=== PATIENT | male | born 1960 | race Caucasian/White ===

== ENCOUNTER 2018-12-20 06:01 | Day surgery (SDC) | payer BC ==
[2018-12-20] MEDS ORDERED: Midazolam 1 MG/ML 2 ML SDV ONE (06:38)
[2018-12-20] MEDS ORDERED: Propofol 200 MG/20 ML SDV ONE ×2 (06:38→07:53)
[2018-12-20] MEDS ORDERED: fentaNYL 100 MCG/2 ML SDV ONE (06:38)
[2018-12-20] MEDS ORDERED: Lactated Ringers 1,000 ML IV SCH (07:00)
--- NOTE | 2018-12-20 15:34 | OR ---
DATE OF PROCEDURE: 12/20/2018 PREOPERATIVE DIAGNOSIS: Colon cancer screening. POSTOPERATIVE DIAGNOSES: Diverticulosis, three small colon polyps. PROCEDURE PERFORMED: Colonoscopy to the cecum with biopsy resection of three small colon polyps. SURGEON: Jason To MD ANESTHESIA: IV anesthesia with monitored anesthesia care. INDICATION: This 58-year-old white male is referred for a colonoscopy for colon cancer screening. He has never had a colonoscopic exam. I counseled him for the procedure, including risks and alternatives, and he gave his informed consent to proceed. DESCRIPTION OF PROCEDURE: The patient was placed in the left lateral decubitus position. IV anesthesia was administered by the Anesthesia Service. Time-out was held. A rectal exam was performed, which was unremarkable. The flexible video Olympus colonoscope was introduced through his anus, up his rectum, out his colon all the way to the cecum. En route, we saw very few scattered diverticula. There was no bleeding or inflammation associated with them. Once the cecum was reached, the scope was slowly withdrawn examining the mucosa throughout. In the distal transverse colon, we saw a small polyp, which was removed with the biopsy forceps. The scope was brought back further with no additional lesions noted until the rectum was reach. Here, at about 15 cm and another at about 8 cm, we saw small polyps. These were each removed with the biopsy forceps and sent separately to the laboratory. The scope was retroflexed in the rectum with the distal rectum appearing unremarkable. The scope was straightened and removed. He tolerated the procedure well. Jason To MD /[id number]
== END 2018-12-20 09:15 | disposition home or self-care (01) ==
LOC: JP.SDS 06:01
PROVIDERS: ATTEND Surgery
DX: Z12.11 Encounter for screening for malignant neoplasm of colon (principal); D12.3 Benign neoplasm of transverse colon; D12.8 Benign neoplasm of rectum; K63.5 Polyp of colon; K57.30 Diverticulosis of large intestine without perforation or abscess without bleeding; I10 Essential (primary) hypertension; E11.65 Type 2 diabetes mellitus with hyperglycemia; E78.5 Hyperlipidemia, unspecified; E66.9 Obesity, unspecified; Z68.42 Body mass index [BMI] 45.0-49.9, adult
CPT/HCPCS: 45380; J2250; J2704; J3010; J7120

== ENCOUNTER 2019-02-12 07:39 | Day surgery (SDC) | payer BC ==
[~2019-02-12 07:39] MED LIST: Bupivacaine 0.5% 30 ML SDV ONE; Dexamethasone 4 MG/ML SDV ONE; Glycopyrrolate 0.2 MG/ML 5 ML MDV ONE; Neostigmine Methylsulfate 1 MG/ML 5 ML Syringe ONE; Ondansetron 4 MG/2 ML SDV ONE; Propofol 200 MG/20 ML SDV ONE; Rocuronium 50 MG/5 ML Vial ONE; Succinylcholine 200 MG/10 ML MDV ONE; fentaNYL 250 MCG/5 ML SDV ONE
[2019-02-12] MEDS ORDERED: Lactated Ringers 1,000 ML IV SCH (08:45)
[2019-02-12] MEDS ORDERED: Nozin Nasal Sanitizer NASBOTH ONE (09:00)
[2019-02-12] MEDS ORDERED: ceFAZolin 2 GM in Premix Bag 1 BAG IV ONE (09:30)
[2019-02-12] MEDS ORDERED: ceFAZolin 2 GM in Sodium Chloride 0.9% 50 ML IV ONE (09:30)
[2019-02-12] MEDS ORDERED: Acetaminophen/oxyCODONE 325-5 MG Tab PO PRN (11:23)
--- NOTE | 2019-02-14 16:31 | OR ---
DATE OF PROCEDURE: 02/12/2019 SURGEON: Kenneth Chacon MD PREOPERATIVE DIAGNOSIS: Degenerative meniscus tear, right knee, possible articular cartilage defect, displaced. POSTOPERATIVE DIAGNOSES: 1. Degenerative meniscus tear, right knee, medial and lateral meniscus. 2. Chondromalacia of patellofemoral joint, grade 4. 3. 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 PROCEDURES: Arthroscopy right knee with partial medial meniscectomy with debridement, partial lateral meniscectomy with debridement, chondroplasty of patellofemoral joint. ANESTHESIA: General. INDICATIONS: Doroteo is a 58-year-old gentleman, who has had right knee pain off and on for the past few years, typically more aching pain with intermittent sharper pain, but he has been able to maintain his work. He has had recent onset of acute pain in the right knee with inability to weightbear, fully extend the knee, or to flex beyond 90 to 95 degrees. X- rays reveal only very mild joint space narrowing. He is therefore taken to the operating room for arthroscopy for a presumed degenerative meniscus tear locked within the joint. Risks, benefits, potential complications of the procedure were discussed. PROCEDURE IN DETAIL: After adequate anesthesia was obtained, the patient was placed supine with a tourniquet about the right upper thigh. Right leg was prepped and draped in a sterile fashion. Leg was exsanguinated and tourniquet inflated to 300 mmHg pressure. Standard anterior, inferior, medial, and lateral portals were established. Scope was introduced and the patellofemoral joint was inspected. This revealed mild degenerative changes on the patella with two areas of full-thickness articular cartilage loss in the trochlea. These were both troughs measuring approximately 12 mm in length and 3 to 4 mm in width. Loose articular flaps were present on the edges, particularly in the medial and lateral edges of the troughs. Scope was then moved into the medial compartment and this showed intact articular cartilage with some thinning, but no significant defects. Degenerative meniscus tear was present in the posterior horn. This was debrided back to a stable margin with a combination of punch baskets and shaver. All loose fragments were removed. Intercondylar notch revealed evidence of an old partial ACL tear, primarily the anterior bundle. A portion of this was debrided and the remainder of the ACL and PCL were inspected and were normal. Moving into the lateral compartment, significant degenerative changes were noted with areas of complete articular cartilage loss and bone eburnation on both the femoral condyle and tibial plateau. Lateral meniscus showed degenerative tearing in the posterior horn into the midbody. Punch basket and shaver were used to debride the loose portions of the meniscus and shaven back to a stable margin. All loose fragments were removed. Attention was returned to the patellofemoral joint where shaver was used to perform chondroplasty, removing the loose articular flaps from the trough, but doing minimal debridement of remaining articular cartilage. Knee was drained. Scope was withdrawn. Port sites were closed in a standard fashion, infiltrated with Marcaine. A sterile dressing was applied. The patient tolerated the procedure very well. There were no complications. He was taken from the operating room in stable condition. Kenneth Chacon MD /[id number]
== END 2019-02-12 12:22 | disposition home or self-care (01) ==
LOC: JP.SDS 07:39
PROVIDERS: ATTEND Specialist
DX: S83.281A Other tear of lateral meniscus, current injury, right knee, initial encounter (principal); S83.241A Other tear of medial meniscus, current injury, right knee, initial encounter; M22.41 Chondromalacia patellae, right knee; M17.11 Unilateral primary osteoarthritis, right knee; E78.00 Pure hypercholesterolemia, unspecified; I10 Essential (primary) hypertension; M19.90 Unspecified osteoarthritis, unspecified site; E11.9 Type 2 diabetes mellitus without complications; Z79.899 Other long term (current) drug therapy; Z87.891 Personal history of nicotine dependence
CPT/HCPCS: A9270-GY; J0330; J0690; J1100; J2405; J2704; J2710; J3010; J3490; J7050; J7120

== ENCOUNTER 2019-03-19 09:00 | Inpatient (IN) | payer BC ==
[~2019-03-19 09:00] MED LIST changes: -Bupivacaine 0.5% 30 ML SDV ONE; -Dexamethasone 4 MG/ML SDV ONE; -Glycopyrrolate 0.2 MG/ML 5 ML MDV ONE; -Neostigmine Methylsulfate 1 MG/ML 5 ML Syringe ONE; -Ondansetron 4 MG/2 ML SDV ONE; +Povidone-Iodine 10% Soln 118.25 ML Bottle ONE; -Propofol 200 MG/20 ML SDV ONE; -Rocuronium 50 MG/5 ML Vial ONE; -Succinylcholine 200 MG/10 ML MDV ONE; -fentaNYL 250 MCG/5 ML SDV ONE
[2019-03-19] MEDS ORDERED: Lactated Ringers 1,000 ML IV SCH (10:00)
[2019-03-19] MEDS ORDERED: Nozin Nasal Sanitizer NASBOTH ONE (10:00)
[2019-03-19] MEDS ORDERED: Tranexamic Acid 1,000 MG in Sodium Chloride 0.9% 50 ML IV ONE ×2 (10:30→17:30)
[2019-03-19] MEDS ORDERED: ceFAZolin 2 GM in Sodium Chloride 0.9% 50 ML IV ONE (11:00)
[2019-03-19] MEDS ORDERED: ceFAZolin 2 GM in Premix Bag 1 BAG IV ONE (11:00)
[2019-03-19] MEDS ORDERED: fentaNYL 100 MCG/2 ML SDV ONE ×4 (11:54→16:41)
[2019-03-19] MEDS ORDERED: Midazolam 1 MG/ML 2 ML SDV ONE ×5 (11:54→15:38)
[2019-03-19] MEDS ORDERED: Propofol 200 MG/20 ML SDV ONE ×7 (11:54→16:25)
[2019-03-19] MEDS ORDERED: Tranexamic Acid 1,000 MG in Sodium Chloride 0.9% 50 ML IV PRN (12:30)
[2019-03-19] MEDS ORDERED: Lactated Ringers 1,000 ML ONE (14:27)
[2019-03-19] MEDS ORDERED: Acetaminophen 325 MG Tab PO PRN (17:25)
[2019-03-19] MEDS ORDERED: Magnesium Hydroxide 400 MG/5 ML Susp 30 ML Cup PO PRN (17:25)
[2019-03-19] MEDS ORDERED: Sodium Chloride 0.9% 1,000 ML IV SCH (17:30)
[2019-03-19] MEDS: Ketorolac 30 MG/ML SDV IVPUSH SCH (18:26)
[2019-03-19] MEDS: Acetaminophen/oxyCODONE 325-5 MG Tab PO PRN ×2 (18:26→22:37)
[2019-03-19] MEDS: Morphine 4 MG/ML Syringe IVPUSH PRN ×2 (19:34→23:10)
[2019-03-19] MEDS: ceFAZolin 1 GM in Sodium Chloride 0.9% 50 ML IV SCH (21:32)
[2019-03-19] MEDS: Docusate Sodium 100 MG Cap PO SCH (21:33)
[2019-03-20] MEDS: Ketorolac 30 MG/ML SDV IVPUSH SCH ×3 (02:37→18:12)
[2019-03-20] MEDS: ceFAZolin 1 GM in Sodium Chloride 0.9% 50 ML IV SCH ×3 (05:12→21:38)
[2019-03-20] MEDS ORDERED: Enoxaparin 30 MG/0.3 ML Syringe SUBCUT SCH (09:00)
[2019-03-20] MEDS: Losartan 50 MG Tab PO SCH (09:47)
[2019-03-20] MEDS: Rosuvastatin 10 MG Tab PO SCH (09:50)
[2019-03-20] MEDS: amLODIPine 5 MG Tab PO SCH (09:50)
[2019-03-20] MEDS: Hydrochlorothiazide 25 MG Tab PO SCH (09:50)
[2019-03-20] MEDS: Docusate Sodium 100 MG Cap PO SCH ×2 (09:51→20:12)
[2019-03-20] MEDS: Enoxaparin 30 MG/0.3 ML Syringe SUBCUT SCH (09:51)
[2019-03-20] MEDS: Nozin Nasal Sanitizer NASBOTH SCH ×2 (09:51→20:12)
[2019-03-20] MEDS: Acetaminophen/oxyCODONE 325-5 MG Tab PO PRN ×2 (12:15→16:29)
--- NOTE | 2019-03-20 16:31 | CRLCR ---
INDICATION: Postop follow up. IMPRESSION: Two views right knee. Total knee arthroplasty with patellar resurfacing. Immediate postoperative appearance with soft tissue and intra-articular air. Anatomic alignment. No fracture. Dictated by Jayden Friedman MD @ Mar 20 2019 4:29PM Signed by Dr. Jayden Friedman @ Mar 20 2019 4:29PM
[2019-03-21] MEDS: Acetaminophen/oxyCODONE 325-5 MG Tab PO PRN ×4 (01:36→23:44)
[2019-03-21] MEDS: Ketorolac 30 MG/ML SDV IVPUSH SCH ×2 (01:45→09:14)
[2019-03-21] MEDS: Rosuvastatin 10 MG Tab PO SCH (08:49)
[2019-03-21] MEDS: Hydrochlorothiazide 25 MG Tab PO SCH (08:49)
[2019-03-21] MEDS: amLODIPine 5 MG Tab PO SCH (08:50)
[2019-03-21] MEDS: Losartan 50 MG Tab PO SCH (08:54)
[2019-03-21] MEDS: Docusate Sodium 100 MG Cap PO SCH ×2 (08:55→21:48)
[2019-03-21] MEDS: Enoxaparin 30 MG/0.3 ML Syringe SUBCUT SCH (08:56)
[2019-03-21] MEDS: Nozin Nasal Sanitizer NASBOTH SCH ×2 (08:57→21:48)
--- NOTE | 2019-03-21 09:56 | CRLCR ---
Indication: Status post TKA. Technique: Examination consists two views the right knee is AP supine and cross-table lateral views Comparison: There are no prior studies for comparison Findings: There has been a right knee arthroplasty. The alignment of the prosthetic components appears normal. There is no fracture and there is no abnormal lucency about implants. Gas within soft tissues is noted consistent with the immediate postoperative period. There is a small joint effusion Impression: Expected appearance of the right knee immediately status post arthroplasty. No unexpected findings. Dictated by Rich Farah MD @ Mar 20 2019 4:28PM Signed by Dr. Rich Farah @ Mar 20 2019 4:30PM
--- NOTE | 2019-03-21 12:44 | PCM.SURGPN ---
- General Info Date of Service: 03/20/19 Date of Surgery/Procedure: 03/19/19 POD#: 1 Functional Status: Reports: Pain Controlled, Tolerating Diet, Ambulating - Review of Systems General: Reports: No Symptoms HEENT: Reports: No Symptoms Pulmonary: Reports: No Symptoms Cardiovascular: Reports: No Symptoms Gastrointestinal: Reports: No Symptoms Genitourinary: Reports: No Symptoms Musculoskeletal: Reports: Leg Pain Skin: Reports: No Symptoms Neurological: Reports: No Symptoms Psychiatric: Reports: No Symptoms - Patient Data Vitals - Most Recent: Last Vital Signs Temp 37.0 C 03/21/19 10:27 Pulse 80 03/21/19 10:27 Resp 14 03/21/19 10:27 BP 110/62 03/21/19 10:27 Pulse Ox 96 03/21/19 10:27 Weight - Most Recent: 113.398 kg I&O - Last 24 Hours: Intake & Output 03/20/19 03/21/19 03/21/19 22:59 06:59 14:59 Intake Total 50 300 360 Output Total 200 Balance -150 300 360 Med Orders - Current: Current Medications Acetaminophen (Tylenol) 650 mg PO Q4H PRN PRN Reason: Pain/Fever Amlodipine Besylate (Norvasc) 5 mg PO DAILY [facility] Last Admin: 03/21/19 08:50 Dose: 5 mg Bandage/Support Products ( Nasal Bus Analyst) 1 applic NASBOTH BID [facility] Last Admin: 03/21/19 08:57 Dose: 1 applic Docusate Sodium (Colace) 100 mg PO BID [facility] Last Admin: 03/21/19 08:55 Dose: 100 mg Enoxaparin Sodium (Lovenox) 30 mg SUBCUT DAILY [facility] Last Admin: 03/21/19 08:56 Dose: 30 mg Hydrochlorothiazide (Hydrochlorothiazide) 25 mg PO DAILY [facility] Last Admin: 03/21/19 08:49 Dose: 25 mg Sodium Chloride (Normal Saline) 1,000 mls @ 125 mls/hr IV ASDIRECTED [facility] Last Admin: 03/20/19 09:56 Dose: 125 mls/hr Ketorolac Tromethamine (Toradol) 30 mg IVPUSH Q8H [facility] Stop: 03/23/19 18:01 Last Admin: 03/21/19 09:14 Dose: 30 mg Losartan Potassium (Cozaar) 100 mg PO DAILY [facility] Last Admin: 03/21/19 08:54 Dose: 100 mg Magnesium Hydroxide (Milk Of Magnesia) 30 ml PO BID PRN PRN Reason: Constipation Morphine Sulfate (Morphine) 4 mg IVPUSH Q2H PRN PRN Reason: Breakthrough Pain Last Admin: 03/19/19 23:10 Dose: 4 mg Oxycodone/Acetaminophen (Percocet 325-5 Mg) 2 tab PO Q4H PRN PRN Reason: Pain Last Admin: 03/21/19 08:25 Dose: 1 tab Rosuvastatin Calcium (Crestor) 5 mg PO DAILY [facility] Last Admin: 03/21/19 08:49 Dose: 5 mg Discontinued Medications Bandage/Support Products ( Nasal Bus Analyst) 1 applic NASBOTH ONETIME ONE Stop: 03/19/19 10:01 Last Admin: 03/19/19 10:08 Dose: 1 applic Enoxaparin Sodium (Lovenox) 30 mg SUBCUT DAILY [facility] Fentanyl (Sublimaze) Confirm Administered Dose 100 mcg .ROUTE .STK-MED ONE Stop: 03/19/19 11:55 Fentanyl (Sublimaze) Confirm Administered Dose 100 mcg .ROUTE .STK-MED ONE Stop: 03/19/19 15:39 Fentanyl (Sublimaze) Confirm Administered Dose 100 mcg .ROUTE .STK-MED ONE Stop: 03/19/19 16:16 Fentanyl (Sublimaze) Confirm Administered Dose 100 mcg .ROUTE .STK-MED ONE Stop: 03/19/19 16:42 Lactated Ringer's (Ringers, Lactated) 1,000 mls @ 75 mls/hr IV ASDIRECTED [facility] Last Admin: 03/19/19 10:45 Dose: 75 mls/hr Cefazolin Sodium 2 gm/ Sodium (Chloride) 50 mls @ 100 mls/hr IV ONETIME ONE Stop: 03/19/19 11:29 Last Admin: 03/19/19 13:41 Dose: 100 mls/hr Tranexamic Acid 1,000 mg/ (Sodium Chloride) 60 mls @ 240 mls/hr IV ONETIME ONE Stop: 03/19/19 10:44 Last Admin: 03/19/19 14:24 Dose: 240 mls/hr Lactated Ringer's (Ringers, Lactated) Confirm Administered Dose 1,000 mls @ as directed .ROUTE .STK-MED ONE Stop: 03/19/19 14:28 Tranexamic Acid 1,000 mg/ (Sodium Chloride) 60 mls @ 240 mls/hr IV ONETIME ONE Stop: 03/19/19 17:44 Last Admin: 03/19/19 17:00 Dose: 240 mls/hr Cefazolin Sodium 1 gm/ Sodium (Chloride) 50 mls @ 200 mls/hr IV Q8H [facility] Stop: 03/20/19 22:14 Last Admin: 03/20/19 21:38 Dose: 200 mls/hr Midazolam HCl (Versed 1 Mg/Ml) Confirm Administered Dose 2 mg .ROUTE .STK-MED ONE Stop: 03/19/19 11:55 Midazolam HCl (Versed 1 Mg/Ml) Confirm Administered Dose 2 mg .ROUTE .STK-MED ONE Stop: 03/19/19 14:28 Midazolam HCl (Versed 1 Mg/Ml) Confirm Administered Dose 2 mg .ROUTE .STK-MED ONE Stop: 03/19/19 14:37 Midazolam HCl (Versed 1 Mg/Ml) Confirm Administered Dose 2 mg .ROUTE .STK-MED ONE Stop: 03/19/19 15:20 Midazolam HCl (Versed 1 Mg/Ml) Confirm Administered Dose 2 mg .ROUTE .STK-MED ONE Stop: 03/19/19 15:39 Povidone Iodine (Betadine 10% Soln) Confirm Administered Dose 1 ml .ROUTE .STK- MED ONE Stop: 03/19/19 08:28 Last Admin: 03/19/19 14:31 Dose: 60 ml Propofol (Diprivan 20 Ml) Confirm Administered Dose 200 mg .ROUTE .STK-MED ONE Stop: 03/19/19 11:55 Propofol (Diprivan 20 Ml) Confirm Administered Dose 200 mg .ROUTE .STK-MED ONE Stop: 03/19/19 14:22 Propofol (Diprivan 20 Ml) Confirm Administered Dose 200 mg .ROUTE .STK-MED ONE Stop: 03/19/19 14:58 Propofol (Diprivan 20 Ml) Confirm Administered Dose 200 mg .ROUTE .STK-MED ONE Stop: 03/19/19 15:16 Propofol (Diprivan 20 Ml) Confirm Administered Dose 200 mg .ROUTE .STK-MED ONE Stop: 03/19/19 15:31 Propofol (Diprivan 20 Ml) Confirm Administered Dose 200 mg .ROUTE .STK-MED ONE Stop: 03/19/19 16:04 Propofol (Diprivan 20 Ml) Confirm Administered Dose 200 mg .ROUTE .STK-MED ONE Stop: 03/19/19 16:26 - Exam Wound/Incisions: Dressing Dry and Intact General: Alert, Oriented HEENT: Pupils Equal Neck: Supple Lungs: Clear to Auscultation, Normal Respiratory Effort Cardiovascular: Regular Rate, Regular Rhythm GI/Abdominal Exam: Normal Bowel Sounds, Soft, Non-Tender, No Distention Extremities: Joint Swelling, Limited Range of Motion Skin: Warm, Dry Neurological: No New Focal Deficit Psy/Mental Status: Alert, Normal Affect, Normal Mood - Problem List & Annotations (1) Status post total bilateral knee replacement SNOMED Code(s): 3289729782615, 6143622644681 Code(s): Z96.653 - PRESENCE OF ARTIFICIAL KNEE JOINT, BILATERAL Status: Acute Current Visit: Yes - Problem List Review Problem List Initiated/Reviewed/Updated: Yes - My Orders Last 24 Hours: Active Orders 24 hr Category Date Time Status Convert IV to Saline Lock [OM.PC] Routine Oth 03/20/19 12:48 Ordered Medication Orders Acetaminophen (Tylenol) 650 mg PO Q4H PRN PRN Reason: Pain/Fever Amlodipine Besylate (Norvasc) 5 mg PO DAILY [facility] Last Admin: 03/21/19 08:50 Dose: 5 mg Admin: 03/20/19 09:50 Dose: 5 mg Bandage/Support Products ( Nasal Bus Analyst) 1 applic NASBOTH BID [facility] Last Admin: 03/21/19 08:57 Dose: 1 applic Admin: 03/20/19 20:12 Dose: 1 applic Admin: 03/20/19 09:51 Dose: 1 applic Docusate Sodium (Colace) 100 mg PO BID [facility] Last Admin: 03/21/19 08:55 Dose: 100 mg Admin: 03/20/19 20:12 Dose: 100 mg Admin: 03/20/19 09:51 Dose: 100 mg Admin: 03/19/19 21:33 Dose: 100 mg Enoxaparin Sodium (Lovenox) 30 mg SUBCUT DAILY [facility] Last Admin: 03/21/19 08:56 Dose: 30 mg Admin: 03/20/19 09:51 Dose: 30 mg Hydrochlorothiazide (Hydrochlorothiazide) 25 mg PO DAILY [facility] Last Admin: 03/21/19 08:49 Dose: 25 mg Admin: 03/20/19 09:50 Dose: 25 mg Sodium Chloride (Normal Saline) 1,000 mls @ 125 mls/hr IV ASDIRECTED [facility] Last Admin: 03/20/19 09:56 Dose: 125 mls/hr Ketorolac Tromethamine (Toradol) 30 mg IVPUSH Q8H [facility] Stop: 03/23/19 18:01 Last Admin: 03/21/19 09:14 Dose: 30 mg Admin: 03/21/19 01:45 Dose: 30 mg Admin: 03/20/19 18:12 Dose: 30 mg Admin: 03/20/19 09:52 Dose: 30 mg Admin: 03/20/19 02:37 Dose: 30 mg Admin: 03/19/19 18:26 Dose: 30 mg Losartan Potassium (Cozaar) 100 mg PO DAILY [facility] Last Admin: 03/21/19 08:54 Dose: 100 mg Admin: 03/20/19 09:47 Dose: 100 mg Magnesium Hydroxide (Milk Of Magnesia) 30 ml PO BID PRN PRN Reason: Constipation Morphine Sulfate (Morphine) 4 mg IVPUSH Q2H PRN PRN Reason: Breakthrough Pain Last Admin: 03/19/19 23:10 Dose: 4 mg Admin: 03/19/19 19:34 Dose: 4 mg Oxycodone/Acetaminophen (Percocet 325-5 Mg) 2 tab PO Q4H PRN PRN Reason: Pain Last Admin: 03/21/19 08:25 Dose: 1 tab Admin: 03/21/19 01:36 Dose: 1 tab Admin: 03/20/19 16:29 Dose: 2 tab Admin: 03/20/19 12:15 Dose: 2 tab Admin: 03/19/19 22:37 Dose: 2 tab Admin: 03/19/19 18:26 Dose: 2 tab Rosuvastatin Calcium (Crestor) 5 mg PO DAILY [facility] Last Admin: 03/21/19 08:49 Dose: 5 mg Admin: 03/20/19 09:50 Dose: 5 mg - Assessment Assessment (Free Text/Narrative):: Tolerated surgery and is doing very well, pain controlled, has been up in room and just into hallway - Plan Plan (Free Text/Narrative):: Continue PT/OT, D/C Alvarenga, saline lock IV, change dressing tomorrow
--- NOTE | 2019-03-21 12:49 | PCM.SURGPN ---
- General Info Date of Service: 03/21/19 Date of Surgery/Procedure: 03/19/19 POD#: 2 Functional Status: Reports: Pain Controlled, Tolerating Diet, Ambulating, Urinating - Review of Systems General: Reports: No Symptoms HEENT: Reports: No Symptoms Pulmonary: Reports: No Symptoms Cardiovascular: Reports: No Symptoms Gastrointestinal: Reports: No Symptoms Genitourinary: Reports: No Symptoms Musculoskeletal: Reports: No Symptoms Skin: Reports: No Symptoms Neurological: Reports: No Symptoms Psychiatric: Reports: No Symptoms - Patient Data Vitals - Most Recent: Last Vital Signs Temp 37.0 C 03/21/19 10:27 Pulse 80 03/21/19 10:27 Resp 14 03/21/19 10:27 BP 110/62 03/21/19 10:27 Pulse Ox 96 03/21/19 10:27 Weight - Most Recent: 113.398 kg I&O - Last 24 Hours: Intake & Output 03/20/19 03/21/19 03/21/19 22:59 06:59 14:59 Intake Total 50 300 600 Output Total 200 Balance -150 300 600 Med Orders - Current: Current Medications Acetaminophen (Tylenol) 650 mg PO Q4H PRN PRN Reason: Pain/Fever Amlodipine Besylate (Norvasc) 5 mg PO DAILY [facility] Last Admin: 03/21/19 08:50 Dose: 5 mg Bandage/Support Products ( Nasal Vice President Of Product Marketing) 1 applic NASBOTH BID [facility] Last Admin: 03/21/19 08:57 Dose: 1 applic Docusate Sodium (Colace) 100 mg PO BID [facility] Last Admin: 03/21/19 08:55 Dose: 100 mg Enoxaparin Sodium (Lovenox) 30 mg SUBCUT DAILY [facility] Last Admin: 03/21/19 08:56 Dose: 30 mg Hydrochlorothiazide (Hydrochlorothiazide) 25 mg PO DAILY [facility] Last Admin: 03/21/19 08:49 Dose: 25 mg Sodium Chloride (Normal Saline) 1,000 mls @ 125 mls/hr IV ASDIRECTED [facility] Last Admin: 03/20/19 09:56 Dose: 125 mls/hr Ketorolac Tromethamine (Toradol) 30 mg IVPUSH Q8H [facility] Stop: 03/23/19 18:01 Last Admin: 03/21/19 09:14 Dose: 30 mg Losartan Potassium (Cozaar) 100 mg PO DAILY [facility] Last Admin: 03/21/19 08:54 Dose: 100 mg Magnesium Hydroxide (Milk Of Magnesia) 30 ml PO BID PRN PRN Reason: Constipation Morphine Sulfate (Morphine) 4 mg IVPUSH Q2H PRN PRN Reason: Breakthrough Pain Last Admin: 03/19/19 23:10 Dose: 4 mg Oxycodone/Acetaminophen (Percocet 325-5 Mg) 2 tab PO Q4H PRN PRN Reason: Pain Last Admin: 03/21/19 08:25 Dose: 1 tab Rosuvastatin Calcium (Crestor) 5 mg PO DAILY [facility] Last Admin: 03/21/19 08:49 Dose: 5 mg Discontinued Medications Bandage/Support Products ( Nasal Vice President Of Product Marketing) 1 applic NASBOTH ONETIME ONE Stop: 03/19/19 10:01 Last Admin: 03/19/19 10:08 Dose: 1 applic Enoxaparin Sodium (Lovenox) 30 mg SUBCUT DAILY [facility] Fentanyl (Sublimaze) Confirm Administered Dose 100 mcg .ROUTE .STK-MED ONE Stop: 03/19/19 11:55 Fentanyl (Sublimaze) Confirm Administered Dose 100 mcg .ROUTE .STK-MED ONE Stop: 03/19/19 15:39 Fentanyl (Sublimaze) Confirm Administered Dose 100 mcg .ROUTE .STK-MED ONE Stop: 03/19/19 16:16 Fentanyl (Sublimaze) Confirm Administered Dose 100 mcg .ROUTE .STK-MED ONE Stop: 03/19/19 16:42 Lactated Ringer's (Ringers, Lactated) 1,000 mls @ 75 mls/hr IV ASDIRECTED [facility] Last Admin: 03/19/19 10:45 Dose: 75 mls/hr Cefazolin Sodium 2 gm/ Sodium (Chloride) 50 mls @ 100 mls/hr IV ONETIME ONE Stop: 03/19/19 11:29 Last Admin: 03/19/19 13:41 Dose: 100 mls/hr Tranexamic Acid 1,000 mg/ (Sodium Chloride) 60 mls @ 240 mls/hr IV ONETIME ONE Stop: 03/19/19 10:44 Last Admin: 03/19/19 14:24 Dose: 240 mls/hr Lactated Ringer's (Ringers, Lactated) Confirm Administered Dose 1,000 mls @ as directed .ROUTE .STK-MED ONE Stop: 03/19/19 14:28 Tranexamic Acid 1,000 mg/ (Sodium Chloride) 60 mls @ 240 mls/hr IV ONETIME ONE Stop: 03/19/19 17:44 Last Admin: 03/19/19 17:00 Dose: 240 mls/hr Cefazolin Sodium 1 gm/ Sodium (Chloride) 50 mls @ 200 mls/hr IV Q8H [facility] Stop: 03/20/19 22:14 Last Admin: 03/20/19 21:38 Dose: 200 mls/hr Midazolam HCl (Versed 1 Mg/Ml) Confirm Administered Dose 2 mg .ROUTE .STK-MED ONE Stop: 03/19/19 11:55 Midazolam HCl (Versed 1 Mg/Ml) Confirm Administered Dose 2 mg .ROUTE .STK-MED ONE Stop: 03/19/19 14:28 Midazolam HCl (Versed 1 Mg/Ml) Confirm Administered Dose 2 mg .ROUTE .STK-MED ONE Stop: 03/19/19 14:37 Midazolam HCl (Versed 1 Mg/Ml) Confirm Administered Dose 2 mg .ROUTE .STK-MED ONE Stop: 03/19/19 15:20 Midazolam HCl (Versed 1 Mg/Ml) Confirm Administered Dose 2 mg .ROUTE .STK-MED ONE Stop: 03/19/19 15:39 Povidone Iodine (Betadine 10% Soln) Confirm Administered Dose 1 ml .ROUTE .STK- MED ONE Stop: 03/19/19 08:28 Last Admin: 03/19/19 14:31 Dose: 60 ml Propofol (Diprivan 20 Ml) Confirm Administered Dose 200 mg .ROUTE .STK-MED ONE Stop: 03/19/19 11:55 Propofol (Diprivan 20 Ml) Confirm Administered Dose 200 mg .ROUTE .STK-MED ONE Stop: 03/19/19 14:22 Propofol (Diprivan 20 Ml) Confirm Administered Dose 200 mg .ROUTE .STK-MED ONE Stop: 03/19/19 14:58 Propofol (Diprivan 20 Ml) Confirm Administered Dose 200 mg .ROUTE .STK-MED ONE Stop: 03/19/19 15:16 Propofol (Diprivan 20 Ml) Confirm Administered Dose 200 mg .ROUTE .STK-MED ONE Stop: 03/19/19 15:31 Propofol (Diprivan 20 Ml) Confirm Administered Dose 200 mg .ROUTE .STK-MED ONE Stop: 03/19/19 16:04 Propofol (Diprivan 20 Ml) Confirm Administered Dose 200 mg .ROUTE .STK-MED ONE Stop: 03/19/19 16:26 - Exam Wound/Incisions: Healing Well, No Drainage General: Alert, Oriented HEENT: Pupils Equal Neck: Supple Lungs: Clear to Auscultation, Normal Respiratory Effort Cardiovascular: Regular Rate, Regular Rhythm GI/Abdominal Exam: Normal Bowel Sounds, Soft, Non-Tender, No Distention Extremities: Joint Swelling, Limited Range of Motion, Other (mild swelling both legs) Skin: Warm, Dry Neurological: No New Focal Deficit Psy/Mental Status: Alert, Normal Affect, Normal Mood - Problem List & Annotations (1) Status post total bilateral knee replacement SNOMED Code(s): 9663337194709, 5926704999994 Code(s): Z96.653 - PRESENCE OF ARTIFICIAL KNEE JOINT, BILATERAL Status: Acute Current Visit: Yes - Problem List Review Problem List Initiated/Reviewed/Updated: Yes - My Orders Last 24 Hours: Active Orders 24 hr Category Date Time Status Convert IV to Saline Lock [OM.PC] Routine Oth 03/20/19 12:48 Ordered Medication Orders Acetaminophen (Tylenol) 650 mg PO Q4H PRN PRN Reason: Pain/Fever Amlodipine Besylate (Norvasc) 5 mg PO DAILY [facility] Last Admin: 03/21/19 08:50 Dose: 5 mg Admin: 03/20/19 09:50 Dose: 5 mg Bandage/Support Products ( Nasal Vice President Of Product Marketing) 1 applic NASBOTH BID [facility] Last Admin: 03/21/19 08:57 Dose: 1 applic Admin: 03/20/19 20:12 Dose: 1 applic Admin: 03/20/19 09:51 Dose: 1 applic Docusate Sodium (Colace) 100 mg PO BID [facility] Last Admin: 03/21/19 08:55 Dose: 100 mg Admin: 03/20/19 20:12 Dose: 100 mg Admin: 03/20/19 09:51 Dose: 100 mg Admin: 03/19/19 21:33 Dose: 100 mg Enoxaparin Sodium (Lovenox) 30 mg SUBCUT DAILY [facility] Last Admin: 03/21/19 08:56 Dose: 30 mg Admin: 03/20/19 09:51 Dose: 30 mg Hydrochlorothiazide (Hydrochlorothiazide) 25 mg PO DAILY [facility] Last Admin: 03/21/19 08:49 Dose: 25 mg Admin: 03/20/19 09:50 Dose: 25 mg Sodium Chloride (Normal Saline) 1,000 mls @ 125 mls/hr IV ASDIRECTED [facility] Last Admin: 03/20/19 09:56 Dose: 125 mls/hr Ketorolac Tromethamine (Toradol) 30 mg IVPUSH Q8H [facility] Stop: 03/23/19 18:01 Last Admin: 03/21/19 09:14 Dose: 30 mg Admin: 03/21/19 01:45 Dose: 30 mg Admin: 03/20/19 18:12 Dose: 30 mg Admin: 03/20/19 09:52 Dose: 30 mg Admin: 03/20/19 02:37 Dose: 30 mg Admin: 03/19/19 18:26 Dose: 30 mg Losartan Potassium (Cozaar) 100 mg PO DAILY [facility] Last Admin: 03/21/19 08:54 Dose: 100 mg Admin: 03/20/19 09:47 Dose: 100 mg Magnesium Hydroxide (Milk Of Magnesia) 30 ml PO BID PRN PRN Reason: Constipation Morphine Sulfate (Morphine) 4 mg IVPUSH Q2H PRN PRN Reason: Breakthrough Pain Last Admin: 03/19/19 23:10 Dose: 4 mg Admin: 03/19/19 19:34 Dose: 4 mg Oxycodone/Acetaminophen (Percocet 325-5 Mg) 2 tab PO Q4H PRN PRN Reason: Pain Last Admin: 03/21/19 08:25 Dose: 1 tab Admin: 03/21/19 01:36 Dose: 1 tab Admin: 03/20/19 16:29 Dose: 2 tab Admin: 03/20/19 12:15 Dose: 2 tab Admin: 03/19/19 22:37 Dose: 2 tab Admin: 03/19/19 18:26 Dose: 2 tab Rosuvastatin Calcium (Crestor) 5 mg PO DAILY [facility] Last Admin: 03/21/19 08:49 Dose: 5 mg Admin: 03/20/19 09:50 Dose: 5 mg - Assessment Assessment (Free Text/Narrative):: Continues to do well, still a little slow with transitions out of bed, has been up in hallway, urinating with Alvarenga out. - Plan Plan (Free Text/Narrative):: Continue PT/OT , will check back after PT this afternoon and determine needs for home, anticipate discharge tomorrow.
[2019-03-22] MEDS: Acetaminophen/oxyCODONE 325-5 MG Tab PO PRN ×2 (04:26→09:08)
[2019-03-22] MEDS: Docusate Sodium 100 MG Cap PO SCH (09:14)
[2019-03-22] MEDS: Nozin Nasal Sanitizer NASBOTH SCH (09:14)
[2019-03-22] MEDS: Rosuvastatin 10 MG Tab PO SCH (09:15)
[2019-03-22] MEDS: Hydrochlorothiazide 25 MG Tab PO SCH (09:16)
[2019-03-22] MEDS: Losartan 50 MG Tab PO SCH (09:16)
[2019-03-22] MEDS: amLODIPine 5 MG Tab PO SCH (09:16)
[2019-03-22] MEDS: Enoxaparin 30 MG/0.3 ML Syringe SUBCUT SCH (09:17)
--- NOTE | 2019-03-22 12:32 | PCM.DCSUM1 ---
Discharge Summary - Hospital Course HPI Initial Comments: 58 year old male with history of progressive pain both knee for the past few years. Left knee has been more chronic and right knee with rapid progression of pain over the past couple of months. Admitted for bilateral total knee arthroplasty. Diagnosis: Stroke: No Modified [place] Scale: No Symptoms at All Modified [place] Scale Score: 0 - Discharge Data Discharge Date: 03/22/19 Discharge Disposition: Home, Self-Care 01 Condition: Good - Referral to Home Health Primary Care Physician: Michael Messina MD - Discharge Diagnosis/Problem(s) (1) Status post total bilateral knee replacement SNOMED Code(s): 1244717683230, [id number] ICD Code: Z96.653 - PRESENCE OF ARTIFICIAL KNEE JOINT, BILATERAL Status: Acute Current Visit: Yes - Patient Summary/Data Operative Procedure(s) Performed: Bilateral total knee arthroplasty Consults: Consultations // 17:20 Consult to Case Management/Meteorology Instructor [CONS] Routine Comment: Physician Instructions: Service(s) to be Consulted: Case Management Reason for Consult: Plan for Discharge PT Evaluation and Treatment [CONS] Routine Please Evaluate and Treat. PT Reason for Consult: Post op Ortho Surgery Special Instructions: Ambulation and ROM This query below is only for informational purposes and is not editable. 02/ 17:25 OT Evaluation and Treatment [CONS] Routine Please Evaluate and Treat. OT Reason for Consult: ADL's This query below is only for informational purposes and is not editable. Hospital Course: Patient tolerated procedure very well. Was able to participate with PT and pain fairly well controlled with po meds by POD #2. Difficulty initially with transfers in and out bed but was making good progress by POD #3. Did have an isolated temp spike on POD #3, encouraged incentive spirometry, no persistent temp elevation. He was comfortable with ambulation and transfer and was able to be discharged to home with plans for outpatient PT. - Patient Instructions Diet: Usual Diet as Tolerated Activity: Apply Ice, As Tolerated, Full Weight Bearing Driving: Do Not Drive Showering/Bathing: May Shower Notify Provider of: Fever, Increased Pain, Swelling and Redness, Drainage, Nausea and/or Vomiting - Discharge Plan *PRESCRIPTION DRUG MONITORING PROGRAM REVIEWED*: No *COPY OF PRESCRIPTION DRUG MONITORING REPORT IN PATIENT MICHAEL: No Prescriptions/Med Rec: oxyCODONE HCl/Acetaminophen [Percocet 5-325 mg Tablet] 2 each PO Q6HR PRN #48 tablet PRN Reason: Pain Enoxaparin [Lovenox] 30 mg SUBCUT DAILY 24 Days #24 syringe Home Medications: Home Meds Losartan Potassium [Cozaar] 100 mg PO DAILY 12/15/18 [History] Rosuvastatin [Crestor] 5 mg PO DAILY 12/15/18 [History] amLODIPine [Norvasc] 5 mg PO DAILY 12/15/18 [History] hydroCHLOROthiazide [Hydrochlorothiazide] 25 mg PO DAILY 12/15/18 [History] Hydrocodone/Acetaminophen [Hargill 5-325 Tablet] 1 each PO Q6HR PRN #24 tablet [Rx] Cbd Capsule 1 tab PO DAILY 03/19/19 [History] Enoxaparin [Lovenox] 30 mg SUBCUT DAILY 24 Days #24 syringe 03/22/19 [Rx] oxyCODONE HCl/Acetaminophen [Percocet 5-325 mg Tablet] 2 each PO Q6HR PRN #48 tablet 03/22/19 [Rx] Other Amb Orders: PT Evaluation and Treatment [CONS] Time Frame: 5 Days, Location: None Selected Oxygen Therapy Mode: Room Air Patient Handouts: Total Knee Replacement, Care After, [id number], Preventing Constipation After Surgery, Enoxaparin injection Referrals: Kenneth Chacon MD [Physician] - 04/03/19 9:30 am (Please arrive 15 minutes early to register for your appointment. [place] at the ER desk.) Sarmad Shane, PT [Consulting Physician] - 03/26/19 9:00 am (Please arrive 30 minutes early to register for your PT appointment.) - Discharge Summary/Plan Comment DC Time >30 min.: Yes - Patient Data Vitals - Most Recent: Last Vital Signs Temp 36.7 C 03/22/19 10:44 Pulse 86 03/22/19 10:44 Resp 16 03/22/19 10:44 BP 103/62 03/22/19 10:44 Pulse Ox 90 L 03/22/19 10:44 Weight - Most Recent: 113.398 kg I&O - Last 24 hours: Intake & Output 03/21/19 03/22/19 03/22/19 22:59 06:59 14:59 Intake Total 840 600 240 Balance 840 600 240 Med Orders - Current: Current Medications Acetaminophen (Tylenol) 650 mg PO Q4H PRN PRN Reason: Pain/Fever Last Admin: 03/21/19 19:22 Dose: 325 mg Amlodipine Besylate (Norvasc) 5 mg PO DAILY [facility] Last Admin: 03/22/19 09:16 Dose: 5 mg Bandage/Support Products ( Nasal Client Director) 1 applic NASBOTH BID [facility] Last Admin: 03/22/19 09:14 Dose: 1 applic Docusate Sodium (Colace) 100 mg PO BID [facility] Last Admin: 03/22/19 09:14 Dose: 100 mg Enoxaparin Sodium (Lovenox) 30 mg SUBCUT DAILY [facility] Last Admin: 03/22/19 09:17 Dose: 30 mg Hydrochlorothiazide (Hydrochlorothiazide) 25 mg PO DAILY [facility] Last Admin: 03/22/19 09:16 Dose: 25 mg Losartan Potassium (Cozaar) 100 mg PO DAILY [facility] Last Admin: 03/22/19 09:16 Dose: 100 mg Magnesium Hydroxide (Milk Of Magnesia) 30 ml PO BID PRN PRN Reason: Constipation Oxycodone/Acetaminophen (Percocet 325-5 Mg) 2 tab PO Q4H PRN PRN Reason: Pain Last Admin: 03/22/19 09:08 Dose: 1 tab Rosuvastatin Calcium (Crestor) 5 mg PO DAILY [facility] Last Admin: 03/22/19 09:15 Dose: 5 mg Discontinued Medications Bandage/Support Products ( Nasal Client Director) 1 applic NASBOTH ONETIME ONE Stop: 03/19/19 10:01 Last Admin: 03/19/19 10:08 Dose: 1 applic Enoxaparin Sodium (Lovenox) 30 mg SUBCUT DAILY [facility] Fentanyl (Sublimaze) Confirm Administered Dose 100 mcg .ROUTE .STK-MED ONE Stop: 03/19/19 11:55 Fentanyl (Sublimaze) Confirm Administered Dose 100 mcg .ROUTE .STK-MED ONE Stop: 03/19/19 15:39 Fentanyl (Sublimaze) Confirm Administered Dose 100 mcg .ROUTE .STK-MED ONE Stop: 03/19/19 16:16 Fentanyl (Sublimaze) Confirm Administered Dose 100 mcg .ROUTE .STK-MED ONE Stop: 03/19/19 16:42 Lactated Ringer's (Ringers, Lactated) 1,000 mls @ 75 mls/hr IV ASDIRECTED [facility] Last Admin: 03/19/19 10:45 Dose: 75 mls/hr Cefazolin Sodium 2 gm/ Sodium (Chloride) 50 mls @ 100 mls/hr IV ONETIME ONE Stop: 03/19/19 11:29 Last Admin: 03/19/19 13:41 Dose: 100 mls/hr Tranexamic Acid 1,000 mg/ (Sodium Chloride) 60 mls @ 240 mls/hr IV ONETIME ONE Stop: 03/19/19 10:44 Last Admin: 03/19/19 14:24 Dose: 240 mls/hr Lactated Ringer's (Ringers, Lactated) Confirm Administered Dose 1,000 mls @ as directed .ROUTE .STK-MED ONE Stop: 03/19/19 14:28 Tranexamic Acid 1,000 mg/ (Sodium Chloride) 60 mls @ 240 mls/hr IV ONETIME ONE Stop: 03/19/19 17:44 Last Admin: 03/19/19 17:00 Dose: 240 mls/hr Cefazolin Sodium 1 gm/ Sodium (Chloride) 50 mls @ 200 mls/hr IV Q8H [facility] Stop: 03/20/19 22:14 Last Admin: 03/20/19 21:38 Dose: 200 mls/hr Sodium Chloride (Normal Saline) 1,000 mls @ 125 mls/hr IV ASDIRECTED [facility] Last Admin: 03/20/19 09:56 Dose: 125 mls/hr Ketorolac Tromethamine (Toradol) 30 mg IVPUSH Q8H [facility] Stop: 03/23/19 18:01 Last Admin: 03/21/19 09:14 Dose: 30 mg Midazolam HCl (Versed 1 Mg/Ml) Confirm Administered Dose 2 mg .ROUTE .STK-MED ONE Stop: 03/19/19 11:55 Midazolam HCl (Versed 1 Mg/Ml) Confirm Administered Dose 2 mg .ROUTE .STK-MED ONE Stop: 03/19/19 14:28 Midazolam HCl (Versed 1 Mg/Ml) Confirm Administered Dose 2 mg .ROUTE .STK-MED ONE Stop: 03/19/19 14:37 Midazolam HCl (Versed 1 Mg/Ml) Confirm Administered Dose 2 mg .ROUTE .STK-MED ONE Stop: 03/19/19 15:20 Midazolam HCl (Versed 1 Mg/Ml) Confirm Administered Dose 2 mg .ROUTE .STK-MED ONE Stop: 03/19/19 15:39 Morphine Sulfate (Morphine) 4 mg IVPUSH Q2H PRN PRN Reason: Breakthrough Pain Last Admin: 03/19/19 23:10 Dose: 4 mg Povidone Iodine (Betadine 10% Soln) Confirm Administered Dose 1 ml .ROUTE .STK- MED ONE Stop: 03/19/19 08:28 Last Admin: 03/19/19 14:31 Dose: 60 ml Propofol (Diprivan 20 Ml) Confirm Administered Dose 200 mg .ROUTE .STK-MED ONE Stop: 03/19/19 11:55 Propofol (Diprivan 20 Ml) Confirm Administered Dose 200 mg .ROUTE .STK-MED ONE Stop: 03/19/19 14:22 Propofol (Diprivan 20 Ml) Confirm Administered Dose 200 mg .ROUTE .STK-MED ONE Stop: 03/19/19 14:58 Propofol (Diprivan 20 Ml) Confirm Administered Dose 200 mg .ROUTE .STK-MED ONE Stop: 03/19/19 15:16 Propofol (Diprivan 20 Ml) Confirm Administered Dose 200 mg .ROUTE .STK-MED ONE Stop: 03/19/19 15:31 Propofol (Diprivan 20 Ml) Confirm Administered Dose 200 mg .ROUTE .STK-MED ONE Stop: 03/19/19 16:04 Propofol (Diprivan 20 Ml) Confirm Administered Dose 200 mg .ROUTE .STK-MED ONE Stop: 03/19/19 16:26
--- NOTE | 2019-03-23 17:42 | OR ---
DATE OF PROCEDURE: 03/19/2019 SURGEON: Kenneth Chacon MD PREOPERATIVE DIAGNOSIS: Osteoarthritis, bilateral knees. PROCEDURE PERFORMED: Bilateral total knee arthroplasties using Claudia Persona components with size 7 femur, E tibia, 32 mm patellar button, 12 mm poly on the right and 18 mm on the left. ANESTHESIA: Spinal with sedation. INDICATIONS: Doroteo is a 58-year-old gentleman with history of progressive pain in both knees over the past several years. Left one has been giving him problems for quite some time. Right one has been more symptomatic lately. X-rays revealed only mild collapse. However, he recently underwent arthroscopy and was found to have full-thickness articular cartilage loss on both femoral and tibial sides of the joint. He now presents for bilateral total knee arthroplasties. Risks, benefits, potential complications of the procedure were discussed with the patient and his . PROCEDURE IN DETAIL: After adequate anesthesia was obtained, the patient was placed supine with tourniquet about the right and left legs. Both legs were then prepped and draped in sterile fashion. The left leg was then covered with sterile drape. Right leg was exsanguinated and tourniquet inflated to 300 mmHg. Incision made anteriorly and carried down to subcutaneous tissues and a medial parapatellar arthrotomy was performed. Posterior patella was resected with an oscillating saw. Intramedullary canal of the femur was drilled and intramedullary guide was then placed and distal femur was then cut. The extramedullary tibial guide was aligned and secured. The tibial cut was then made with an oscillating saw. Remaining meniscus was excised. Attention was returned to the femur which was sized to a 7 component. The 7 cutting jig was secured to the distal femur and remaining femoral cuts were made. The femoral trial was placed and intramedullary notch cut was made for a posterior cruciate sacrificing component. The tibia was sized to an E and a 10 mm insert was initially trialed. Tibial rotation was determined and the baseplate was secured with the small pins. Metaphysis was drilled and tapped. The patella was sized to a 32 button. This was drilled and button was placed. This did track laterally and a lateral release was performed. The trials were removed. The knee was thoroughly irrigated with pulse lavage. Surfaces were dried and components were cemented in place. Excess cement was removed and the knee was held in full extension with a 10 mm insert trial as the cement cured. The knee was taken through range of motion. He was found to have some mild laxity and a 12 mm insert was then utilized, which provided good balance in flexion and extension. Trial was removed. The knee was irrigated. The polyethylene was snapped into position. The knee was irrigated once again with pulse lavage, followed by dilute Betadine solution, which was left in place for 2-1/2 minutes and then irrigated once again. The knee was then closed with #2 Ethibond in interrupted fashion in the capsule, 2-0 Vicryl and running 3-0 Monocryl. Steri-Strips were applied. Light compressive dressing was placed and the knee was covered with a sterile drape. Attention was turned to the left knee, which was exsanguinated. Prep stick was used to re- prep the knee with ChloraPrep. Again, an anterior incision was made and carried down to the subcutaneous tissues and a medial parapatellar approach utilized. The posterior aspect of patella was resected. Intramedullary canal of the femur was drilled. Distal femur was cut. Extramedullary tibial guide was then used and proximal tibia was resected. The femur was then sized again to a 7. Distal cutting jig was utilized and the remaining cuts were made including an intercondylar notch cut for a posterior cruciate sacrificing component. Menisci were excised. Trial tibia was placed, which was quite tight and an additional 4 mm cut was then made in the tibia. The trial was then placed. Tibial baseplate was secured and the tibia was reamed and the pin cutter was stabbed. The trials were removed. After drilling tibia for a 32 mm patella, which again tracked slightly laterally and a lateral release was performed. The knee was thoroughly irrigated with pulse lavage. Bone surfaces were dried. Components were cemented in place and the excess cement was removed. The knee was held in extension with a 14 mm trial as cement cured. Knee was taken through range of motion. This was found to have some laxity particularly with varus. This was trialed up to a 16 which still showed some laxity laterally but tight medially. Medial collateral ligament was perforated in multiple places allowing some excess give and an 18 mm trial was then utilized, which provided balance in flexion and extension. Trial was removed. The knee was irrigated. Final polyethylene was snapped into position. Knee was irrigated once again followed by a dilute Betadine solution and a final irrigation. The knee was closed in a similar fashion to the right knee and a sterile dressing was applied. The patient tolerated procedure well. There were no complications, taken from the operating room in stable condition. Kenneth Chacon MD /[id number]
== END 2019-03-22 13:15 | disposition home or self-care (01) | DRG 302 ==
LOC: JP.SDS 09:00 → JP.MS 09:00 → EDSTATUS 09:30 → JP.MS 17:20
PROVIDERS: ADMIT Specialist; ATTEND Specialist
PROC: 0SRD0J9 Replacement of Left Knee Joint with Synthetic Substitute, Cemented, Open Approach (ICD-10-PCS; principal; 2019-03-19)
PROC: 0SRC0J9 Replacement of Right Knee Joint with Synthetic Substitute, Cemented, Open Approach (ICD-10-PCS; 2019-03-19)
DX: M17.0 Bilateral primary osteoarthritis of knee (principal); I10 Essential (primary) hypertension; E78.5 Hyperlipidemia, unspecified; E66.9 Obesity, unspecified; E78.00 Pure hypercholesterolemia, unspecified; E11.65 Type 2 diabetes mellitus with hyperglycemia; Z68.44 Body mass index [BMI] 60.0-69.9, adult; Z79.899 Other long term (current) drug therapy; Z87.891 Personal history of nicotine dependence; Z98.41 Cataract extraction status, right eye; Z98.42 Cataract extraction status, left eye
CPT/HCPCS: 36415; 73560-LT; 73560-RT; 85027; 86850; 86900; 86901; 97110-GP; 97116-GP; 97161-GP; 97165-GO; 97530-GP; A9270-GY; C1713; C1776; J0690; J1650; J1885; J2250; J2270; J2704; J3010; J7030; J7050; J7120